=== PATIENT | male | born 1975 | race Caucasian/White ===

== ENCOUNTER 2021-10-05 14:16 | Outpatient (CLI) | payer OTHER, SELFPAY ==
--- NOTE | 2021-10-10 17:04 | WPDHOLTEREM ---
Holter/Event Monitor Holter/Event Monitor Date of procedure: 10/05/21 Holter/Event Procedure: 48 Hr Holter Monitor Conclusion: 1. 48 hour holter monitor with only 6 hour 30 minute analysis time on 10/05/21. 2. Underlying rhythm is sinus rhythm. HR range 54-119 bpm; average HR 83 bpm. 3. There are 2 premature supraventricular complexes. No supraventricular tachycardia. 4. There are 846 premature ventricular complexes, 157 ventricular bigeminy and 255 ventricular trigeminy. No ventricular tachycardia. 5. No sinoatrial or atrioventricular blocks. No significant pauses greater than 2 seconds. 6. No symptoms available for correlation.
== END 2021-10-05 14:17 | disposition home or self-care (01) ==
PROVIDERS: PCP Family Medicine; Visit Provider Physician Assistant Medical
DX: R00.2 Palpitations (principal)
CPT/HCPCS: 93225; 93226

== ENCOUNTER 2023-02-08 09:51 | Day surgery (SDC) | payer OTHER, SELFPAY ==
[2023-01-24 09:41] VITALS: BMI 26.4
[2023-01-24 13:09] VITALS: BMI 27.0
--- NOTE | 2023-02-07 14:07 | PM.HPGS ---
History of Present Illness History of Present Illness Consent: Risks, benefits, and alternatives have been discussed and questions answered. Patient agrees to proceed with procedure. Chief complaint: Neoplasm Screening Narrative: Mik Valdez is a 47 year old male referred for colon cancer screening. Review of Systems Review of Systems: All systems reviewed & are unremarkable except as noted in HPI and below PMFSH Past Medical History Medical History Abdominal bloating Acute reaction to stress Anxiety BMI 25.0-25.9,adult BMI 26.0-26.9,adult Ejaculates too soon Fracture of leg Need for vaccination Pilar cysts Scalp cyst Screening for lipid disorders Screening for prostate cancer Family History Family History Mother Family history of malignant neoplasm of breast in first degree relative Breast cancer Sibling No problems noted. Father Hyperlipidemia Syncope Other Cerebrovascular accident Social History Social History Smoking status: Never smoker Second hand tobacco smoke exposure: Yes Alcohol intake: current Drinks per week: 4 Alcohol use details: beer Substance use: never Substance use type: does not use Lack of Transportation: No Lack of Food: Never True Current Housing: I Have Housing Concerned About Future Housing: No Difficulty Paying Gas/Electric Bills: No Difficulty Paying for Meds: No Currently Unemployed: No Education: Master's Degree or Higher Difficulty w/ Childcare or Family Care: No Living arrangements: with family Occupation/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 Gender identity (if verbalized by the patient): Male Sexual Orientation (if Verbalized by the Patient): Straight or Heterosexual Spiritual care concerns: No Agree to blood products: Yes Meds Home Medications and Allergies Home Medications Medication Instructions Recorded Confirmed Type buspirone 7.5 mg tablet 7.5 mg PO BID #180 tabs 08/21/22 02/08/23 Rx L.acidop,casei,lactis,rham-B.lact,arsen 1 cap PO DAILY 01/24/23 02/08/23 History 625 mg (10 billion cell) capsule (Advanced Probiotic) Allergies Allergy/AdvReac Type Severity Reaction Status Date / Time No Known Allergies Allergy Mild Verified 10/24/22 16:12 Exam Resp: Auscultation: clear to auscultation bilaterally Cardio: Rate: regular rate Rhythm: regular rhythm GI: GI Palp: Yes Soft to palpation and No Tenderness to palpation present (GI) Assessment and Plan Assessment and plan (1) Colon cancer screening: Code(s): Z12.11 - Encounter for screening for malignant neoplasm of colon Status: Acute Assessment and Plan: Colonoscopy with possible biopsy or polypectomy or cautery or injection of substances.
--- NOTE | 2023-02-08 08:11 | P.PNAN_ITS ---
Anes - Initial Pre Proc Eval Procedure: Operation Date: 02/08/23 13:00 Proposed Procedures p Screening Colonoscopy - Carlos Alberto Tenorio MD Date/Time: 02/08/23 08:11 Surgeon: Carlos Alberto Tenorio MD Pre Op Diagnosis: Neoplasm Screening Patient Data Age: 47 Gender: M Height: 1.75 m Weight: 83 kg Allergies Allergy/AdvReac Type Severity Reaction Status Date / Time No Known Allergies Allergy Mild Verified 10/24/22 16:12 Home Medications Medication Instructions Recorded Confirmed Type buspirone 7.5 mg tablet 7.5 mg PO BID #180 tabs 08/21/22 02/08/23 Rx L.acidop,casei,lactis,rham-B.lact,arsen 1 cap PO DAILY 01/24/23 02/08/23 History 625 mg (10 billion cell) capsule (Advanced Probiotic) Patient hx anesthesia problems: none Family hx anesthesia problems: none Results Review: All pre-operative results and documents have been reviewed as part of the pre- operative evaluation. [facility] Past Medical History Medical History (Updated 02/08/23 @ 08:11 by Torsten Morales DO) Abdominal bloating Acute reaction to stress Anxiety BMI 25.0-25.9,adult BMI 26.0-26.9,adult Ejaculates too soon Fracture of leg Need for vaccination Pilar cysts Scalp cyst Screening for lipid disorders Screening for prostate cancer Family History Family History Mother Family history of malignant neoplasm of breast in first degree relative Breast cancer Sibling No problems noted. Father Hyperlipidemia Syncope Other Cerebrovascular accident Social History Social History Smoking status: Never smoker Second hand tobacco smoke exposure: Yes Alcohol intake: current Drinks per week: 4 Alcohol use details: beer Substance use: never Substance use type: does not use Lack of Transportation: No Lack of Food: Never True Current Housing: I Have Housing Concerned About Future Housing: No Difficulty Paying Gas/Electric Bills: No Difficulty Paying for Meds: No Currently Unemployed: No Education: Master's Degree or Higher Difficulty w/ Childcare or Family Care: No Living arrangements: with family Occupation/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 Gender identity (if verbalized by the patient): Male Sexual Orientation (if Verbalized by the Patient): Straight or Heterosexual Spiritual care concerns: No Agree to blood products: Yes Anes - Eval Final PreProcedure Day of Procedure 02/08/23 08:11 Patient weight: overweight Heart: regular rate and rhythm Lungs: clear to auscultation Airway: Mallampati scale class II Neurological: alert and oriented Last oral intake: >/= 8 hours ASA classification: II Emergent: no Anesthetic plan: proceed Anesthesia type and monitoring: general GIVS and standard monitoring Results Review: All pre-operative results and documents have been reviewed as part of the pre- operative evaluation. Informed Consent: The patient's anesthetic plan and its attendant risks and benefits were discussed with the patient/family/POA. Questions were solicited and answers provided to the satisfaction of the patient/family/POA.
[2023-02-08 11:59] VITALS: BMI 25.1
[2023-02-08 12:04] VITALS: BP 112/76; PULSE 78; RESP 16; TEMP 36.3; O2SAT 99
[2023-02-08] MEDS: LACTATED RINGERS 1,000 ML 150 ML IV CONT (12:17)
[2023-02-08 12:49] VITALS: BP 100/69; PULSE 87; RESP 16; O2SAT 96
--- NOTE | 2023-02-08 12:50 | WPDANESPN ---
Anes - Prog Note Post-Op Date/Time: 02/08/23 12:50 Cardiovascular status: normal Respiratory status: normal Airway patency: baseline Mental status: baseline Post-Op hydration status: normal Vital Signs: Last Vital Signs Temp 36.3 C L 02/08/23 12:04 Pulse 78 02/08/23 12:04 Resp 16 02/08/23 12:04 BP 112/76 02/08/23 12:04 Pulse Ox 99 02/08/23 12:04 O2 Del Method Room Air 02/08/23 12:04 Pain Score (VAS): 0 I/O: Intake & Output 02/07/23 02/08/23 02/08/23 23:59 07:59 15:59 Intake Total 200 Balance 200 Post-procedural complaints: none Patient Feedback: Patient satisfied with anesthetic care. Other Findings: Patient vital signs back to baseline. Patient denies nausea and vomiting. Patient's pain under control. Patient OK for discharge.
[2023-02-08 12:59] VITALS: BP 109/75; PULSE 84; RESP 18; O2SAT 99
[2023-02-08 13:09] VITALS: BP 112/80; PULSE 82; RESP 20; O2SAT 98
--- NOTE | 2023-02-08 13:23 | SUR.PHASEII ---
[id number] pt ready for discharge report given to Jayne Fierro RN. pts ride can't come til after work, so pt is going to rest until ride comes
--- NOTE | 2023-02-08 15:19 | SUR.PHASEII ---
pt delay r/t ride supervisor opening and picking
== END 2023-02-08 15:15 | disposition home or self-care (01) ==
PROVIDERS: PCP Family Medicine; Visit Provider Internal Medicine Gastroenterology
PROC: 0DJD8ZZ Inspection of Lower Intestinal Tract, Via Natural or Artificial Opening Endoscopic (ICD-10-PCS; CPT 45378; principal; 2023-02-08 13:00)
DX: Z12.11 Encounter for screening for malignant neoplasm of colon (principal); K57.30 Diverticulosis of large intestine without perforation or abscess without bleeding
CPT/HCPCS: 45378

== ENCOUNTER 2025-02-13 13:23 | Outpatient (CLI) | payer OTHER, SELFPAY ==
--- NOTE | ~2025-02-13 | US_ITS ---
PROCEDURE(S): US soft tissue groin LT INDICATION(S): Hernia COMPARISON(S): None. TECHNIQUE: Grayscale with Valsalva FINDINGS: There is no mass or adenopathy seen. There is no sonographic evidence for left inguinal hernia, including with the Valsalva maneuver. IMPRESSION: No sonographic evidence of left inguinal hernia is seen. Reviewed, dictated and finalized at location A. [facility]
== END 2025-02-13 13:24 | disposition home or self-care (01) ==
LOC: MICIMG 13:24
PROVIDERS: PCP Family Medicine; Visit Provider Family Medicine
DX: R10.32 Left lower quadrant pain (principal)
CPT/HCPCS: 76882